=== PATIENT | male | born 1955 | race Caucasian/White ===

== ENCOUNTER 2016-10-20 06:03 | Outpatient (CLI) ==
[2016-10-20 06:18] LABS: HEMOGLOBIN 15.2 g/dl (14.0-18.0); MEAN CORPUSCULAR HEMOGLOBIN 31.7 pg (27.0-31.0); MEAN CORPUSCULAR HGB CONC 33.8 (31.8-35.4); MEAN CORPUSCULAR VOLUME 93.9 fl (80.0-94.0); RED BLOOD COUNT 4.79 10^6/ul (4.70-6.10); WHITE BLOOD COUNT 5.94 K/ul (4.2-10.2)
[2016-10-20 06:35] LABS: ANION GAP 12.7; BUN/CREATININE RATIO 10.29; CALCIUM 9.2 mg/dL (8.2-10.2); CREATININE 1.36 mg/dL (0.60-1.10); POTASSIUM 3.7 mmol/L (3.5-5.1)
== END 2016-10-20 06:04 | disposition home or self-care (01) ==
LOC: LAB 06:03
PROVIDERS: ATTEND Family Medicine
DX: Z01.818 Encounter for other preprocedural examination (principal); E66.3 Overweight
CPT/HCPCS: 36415; 80048; 85027